=== PATIENT | female | born 1965 | race Caucasian/White ===

== ENCOUNTER 2019-11-23 12:15 | Emergency (ER) | payer MEDICARE ==
--- NOTE | 2019-11-23 13:20 | RADIOLOGY REPORT (SQ) ---
EXAM DESCRIPTION: RIBS LEFT W/PA CHEST IMAGES COMPLETED DATE/TIME: 11/23/2019 1:03 pm REASON FOR STUDY: injury COMPARISON: None. TECHNIQUE: Frontal view of the chest and additional views of the left ribs acquired. NUMBER OF VIEWS: Four view. LIMITATIONS: None. FINDINGS: FRONTAL CXR: Bilateral interstitial airspace disease. No pneumothorax or effusion. RIBS: No displaced rib fractures. No lytic or blastic bony lesions. OTHER: No other significant finding. IMPRESSION: Bilateral interstitial airspace disease. No displaced rib fractures. COMMENT: None. SITE OF TRAUMA/COMPLAINT MARKED/STAMP COMPLETED: NO. TECHNICAL DOCUMENTATION: JOB ID: [id number] 2010 [employer]- All Rights Reserved Reading location - IP/workstation name: [email or web address]
--- NOTE | 2019-11-23 13:35 | ER Document Report ---
HPI - HPI Patient complains to provider of: rib pain Time Seen by Provider: 11/23/19 12:24 Pain Level: 5 Context: 53-year-old female past medical history significant for hypertension, fibromyalgia, depression presents to the emergency room complaining of posterior left rib pain. Patient states she fell while coming down her porch steps on Saturday night falling backwards hitting her left ribs on the step. Denies any head trauma or head injury. States she is been taking ibuprofen without relief. States she has a prescription for oxycodone but she did not take it because she does not like to take pain medication unless she is having severe pain. She states she is getting scheduled to have back surgery and her provider gave her prescription for oxycodone for severe pain. She rates her pain at 5 out of 5 but is refusing any pain medication. She denies any shortness of breath, no difficulty breathing. Associated Symptoms: None Exacerbated by: Movement Relieved by: Denies Similar symptoms previously: No Recently seen / treated by doctor: No - ROS Systems Reviewed and Negative: Yes All other systems reviewed and negative - CONSTITUTIONAL Constitutional: DENIES: Fever, Chills - EENT EENT: DENIES: Sore Throat, Ear Pain, Eye problems - NEURO Neurology: DENIES: Headache, Weakness, Vision blurred, Dizzinesss / Vertigo - CARDIOVASCULAR Cardiovascular: DENIES: Chest pain - RESPIRATORY Respiratory: DENIES: Trouble Breathing, Coughing - GASTROINTESTINAL Gastrointestinal: DENIES: Abdominal Pain, Black / Bloody Stools - URINARY Urinary: DENIES: Dysuria, Urgency, Frequency - REPRODUCTIVE Reproductive: DENIES: : - MUSCULOSKELETAL Musculoskeletal: REPORTS: Back Pain - Left posterior rib pain. DENIES: Extr emity pain Past Medical History - General Information source: Patient - Social History Smoking Status: Never Smoker Chew tobacco use (# tins/day): No Frequency of alcohol use: None Drug Abuse: None Family History: Reviewed & Not Pertinent Patient has homicidal ideation: No - Past Medical History Cardiac Medical History: Reports: Hx Hypertension Psychiatric Medical History: Reports: Hx Depression Vertical Provider Document - CONSTITUTIONAL Agree With Documented VS: Yes Exam Limitations: No Limitations General Appearance: Moderate Distress - INFECTION CONTROL TRAVEL OUTSIDE OF THE [place] IN LAST 30 DAYS: No - HEENT HEENT: Atraumatic, Normocephalic - NECK Neck: Normal Inspection, Supple, Thyroid Normal - RESPIRATORY Respiratory: Breath Sounds Normal, No Respiratory Distress Notes: Tenderness on palpation to the posterior lower left ribs. There is no obvious deformity noted. - CARDIOVASCULAR Cardiovascular: Regular Rate, Regular Rhythm, No Murmur - BACK Back: Abnormal Inspection - Tenderness on palpation to the lower left posterior ribs. No obvious deformity noted.. negative: CVA Tenderness-Right, CVA Tenderness-Left - MUSCULOSKELETAL/EXTREMETIES Musculoskeletal/Extremeties: FROM, Non-Tender - NEURO Level of Consciousness: Awake, Alert, Appropriate Motor/Sensory: No Motor Deficit, No Sensory Deficit - DERM Integumentary: Warm, Dry, No Rash Course - Re-evaluation Re-evalutation: 11/23/19 12:30 MDM: Patient to her right posterior ribs 2 days ago. Taking ibuprofen without relief. Refusing any pain medication in the emergency room. Positive tenderness on palpation to the posterior left ribs. Will get x-rays and reevaluate. 11/23/19 13:35 Reviewed negative x-ray results with patient patient continued to refuse any pain medication so there is no change in her pain. States she does want to make sure that she did not have any broken ribs or punctured lung. She has oxycodone at home to take as needed for pain. Patient with elevated blood pressure. States she did take her hydrochlorothiazide this morning but feels that her blood pressure is elevated secondary to her pain. Continues to refuse any pain medication in the emergency room. She was counseled to use lidocaine patches or Biofreeze if she does not want to take narcotics to reduce her pain. She was counseled on the importance of getting her blood pressure under better control. Outpatient follow-up with primary care physician if not improving in 2 to 3 days. Patient was given strict return to the emergency room guidelines. Return for any new or worsening symptoms. All questions were answered. Patient verbalized understanding and agrees with plan of care. 11/23/19 13:42 - Diagnostic Test Radiology reviewed: Reports reviewed Discharge - Discharge Clinical Impression: Contusion of rib on left side Qualifiers: Encounter type: initial encounter Qualified Code(s): S20.212A - Contusion of left front wall of thorax, initial encounter Hypertension Qualifiers: Hypertension type: unspecified Qualified Code(s): I10 - Essential (primary) hypertension Condition: Stable Disposition: HOME, SELF-CARE Instructions: Rib Contusion ([facility]) Additional Instructions: Continue with Tylenol and or Motrin as needed for pain. Take your oxycodone as needed for pain. Can also use [id number] lidocaine patches or Biofreeze to help with the pain. Your blood pressure is elevated it is important that you take some type of pain medication to alleviate your pain to get your blood pressure under better control. Follow-up with your primary care physician if not improving in 2 to 3 days. Return to the emergency room for any new or worsening symptoms.
[2019-11-23 13:42] VITALS: BP 160/100
== END 2019-11-23 13:42 | disposition home or self-care (01) ==
LOC: ER 12:15
DX: S20.212A Contusion of left front wall of thorax, initial encounter (principal); R07.81 Pleurodynia; W10.8XXA Fall (on) (from) other stairs and steps, initial encounter; I10 Essential (primary) hypertension; Z79.899 Other long term (current) drug therapy
CPT/HCPCS: 99283

== ENCOUNTER 2019-11-23 22:14 | Emergency (ER) | payer MEDICARE ==
[2019-11-23] MEDS ORDERED: ONDANSETRON HCL INJ/PF 4 MG/2 ML SDV IV ONE ×2 (22:32→23:41)
[2019-11-23] MEDS ORDERED: HYDROMORPHONE HCL INJ/PF 2 MG/ML AMPULE IV ONE ×2 (22:32→23:41)
--- NOTE | 2019-11-23 22:33 | ER Document Report ---
Entered by MARVA HERNANDEZ SCRIBE 11/23/192230 Acting as scribe for:LINETTE TATUM DO ED General - General Chief Complaint: Back Pain Stated Complaint: BACK PAIN Primary Care Provider: KIRIT GALLOWAY DO [Primary Care Provider] - Follow up as needed Information source: Patient Notes: This 53 year old female patient presents to the emergency department today with arrival via EMS for left back pain. Patient states she tripped on a dog leash and landed on her left upper back, falling down x4 stairs while going outside x2 days ago. Patient denies hitting her head, LOC, or other injury. Patient states she is nauseous and called EMS tonight because of the pain increasing. Patient reports x2 surgeries on her back, a MRI scheduled in x2 days, and oxycodone prescribed for her chronic back pain. Patient states she took x2 oxycodone, a muscle relaxer, and a anti-inflammatory prior to EMS arrival. Patient states she did not visit the ED the day she fell but was seen here earlier today. TRAVEL OUTSIDE OF THE [place] IN LAST 30 DAYS: No - Related Data Allergies/Adverse Reactions: No Known Allergies Allergy (Unverified 11/23/19 12:21) Past Medical History - General Information source: Patient - Social History Smoking Status: Never Smoker Cigarette use (# per day): No Lives with: Family Family History: Reviewed & Not Pertinent - Past Medical History Cardiac Medical History: Reports: Hx Hypertension Psychiatric Medical History: Reports: Hx Depression Past Surgical History: Reports: Hx Orthopedic Surgery Review of Systems - Review of Systems Constitutional: No symptoms reported EENT: No symptoms reported Cardiovascular: No symptoms reported Respiratory: No symptoms reported Gastrointestinal: See HPI, Nausea Genitourinary: No symptoms reported Female Genitourinary: No symptoms reported Musculoskeletal: See HPI, Back pain - L Skin: No symptoms reported Hematologic/Lymphatic: No symptoms reported Neurological/Psychological: See HPI. denies: Lost consciousness -: Yes All other systems reviewed and negative Physical Exam - Vital signs Vitals: Temp 98.2 F 11/23/19 22:15 - General General appearance: Appears well, Alert - HEENT Head: Normocephalic, Atraumatic Eyes: Normal Pupils: PERRL - Respiratory Respiratory status: No respiratory distress Chest status: Nontender Breath sounds: Normal Chest palpation: Normal - Cardiovascular Rhythm: Regular Heart sounds: Normal auscultation Murmur: No - Abdominal Inspection: Normal Distension: No distension Bowel sounds: Normal Tenderness: Nontender - Back Notes: Tenderness with palpation to the left posterior mid scapular region. No step- off. Tenderness with palpation to the left paraspinal muscle and lumbar region. - Extremities General upper extremity: Normal inspection. No: Edema General lower extremity: Normal inspection. No: Edema - Neurological Neuro grossly intact: Yes Cognition: Normal Orientation: AAOx4 Tre Coma Scale Eye Opening: Spontaneous Tre Coma Scale Verbal: Oriented [place] Coma Scale Motor: Obeys Commands Tre Coma Scale Total: 15 Speech: Normal - Psychological Associated symptoms: Normal affect, Normal mood - Skin Skin Temperature: Warm Skin Moisture: Dry Skin Color: Normal Course - Vital Signs Vital signs: Temp Pulse Resp BP Pulse Ox 98.2 F 162/111 H 96 11/23/19 22:15 11/23/19 23:55 11/24/19 00:09 - Laboratory Result Diagrams: 11/23/19 22:27 11/23/19 22:27 Laboratory results interpreted by me: 11/23/19 22:27 Glucose 142 H AST 49 H Discharge - Discharge Clinical Impression: Hypertension Qualifiers: Hypertension type: unspecified Qualified Code(s): I10 - Essential (primary) hypertension Ribs, multiple fractures Qualifiers: Encounter type: initial encounter Fracture type: closed Laterality: left Qualified Code(s): S22.42XA - Multiple fractures of ribs, left side, initial encounter for closed fracture Thoracic aortic aneurysm Qualifiers: Presence of rupture: without rupture Qualified Code(s): I71.2 - Thoracic aortic aneurysm, without rupture Condition: Stable Disposition: HOME, SELF-CARE Instructions: Oral Narcotic Medication ([facility]), Ice Packs ([facility]), Rib Injuries and Fractures ([facility]), High Blood Pressure ([facility]) Additional Instructions: Rest, fluids, medicines as directed. Please return here for chest pain, s hortness of breath or other problems or concerns. Pain medicine has been sent to [facility]. Referrals: KIRIT GALLOWAY DO [Primary Care Provider] - 11/25/19 I personally performed the services described in the documentation, reviewed and edited the documentation which was dictated to the scribe in my presence, and it accurately records my words and actions.
[2019-11-23 22:47] LABS: ABSOLUTE BASOPHILS # (AUTO) 0.1 10^3/uL (0.0-0.2); ABSOLUTE EOSINOPHILS # (AUTO) 0.3 10^3/uL (0.0-0.6); ABSOLUTE LYMPHOCYTES (AUTO) 2.9 10^3/uL (0.5-4.7); ABSOLUTE MONOCYTES (AUTO) 0.5 10^3/uL (0.1-1.4); ABSOLUTE NEUT (AUTO) 4.7 10^3/uL (1.7-8.2); BASOPHILS % (AUTO) 0.9 % (0-2); HEMATOCRIT 40.3 % (36.0-47.0); HEMOGLOBIN 13.7 g/dL (12.0-15.5); MEAN CORPUSCULAR VOLUME 91 fl (80-97); MONOCYTES % (AUTO) 5.6 % (3-13); PLATELET COUNT 254 10^3/uL (150-450); RED BLOOD COUNT 4.42 10^6/uL (3.72-5.28); RED CELL DISTRIBUTION WIDTH 13.4 % (11.5-14.0); SEGMENTED NEUTROPHILS % (AUTO) 55.5 % (42-78); TOTAL CELLS COUNTED % (AUTO) 100 %; WHITE BLOOD COUNT 8.5 10^3/uL (4.0-10.5)
[2019-11-23 22:53] LABS: ALBUMIN 4.7 g/dL (3.5-5.0); ALKALINE PHOSPHATASE 105 U/L (38-126); ANION GAP 8 (5-19); ASPARTATE AMINO TRANSFERASE 49 U/L (14-36); BILIRUBIN,DIRECT 0.3 mg/dL (0.0-0.4); BILIRUBIN,TOTAL 0.4 mg/dL (0.2-1.3); BLOOD UREA NITROGEN 12 mg/dL (7-20); CALCIUM 9.8 mg/dL (8.4-10.2); CARBON DIOXIDE 27 mmol/L (22-30); CHLORIDE 102 mmol/L (98-107); GLUCOSE 142 mg/dL (75-110); TOTAL PROTEIN 7.5 g/dL (6.3-8.2)
--- NOTE | 2019-11-24 00:47 | RADIOLOGY REPORT (SQ) ---
COMPLETED DATE/TME: 11/23/2019 23:40 EXAM: CTA chest with contrast. CTA abdomen and pelvis with contrast. INDICATION: Thoracic aneurysm, pain, fall TECHNIQUE: Contiguous axial CT images of the chest. Contiguous axial CT images of the abdomen and pelvis. Intravenous contrast: Present. Oral contrast: Absent. MPR and MIP reconstructions were performed. DLP 990 mGy-cm. This exam was performed according to our departmental dose-optimization program, which includes automated exposure control, adjustment of the mA and/or kV according to patient size and/or use of iterative reconstruction technique. COMPARISON: None. FINDINGS: --Chest-- Thoracic aorta: The ascending aorta measures up to 4.2 cm in diameter. No evidence of a dissection. Heart: Unremarkable. Pulmonary arteries: No evidence of a pulmonary embolism. Mediastinum: No pathologic sized middle mediastinal lymphadenopathy. Tracheobronchial tree: Unremarkable. Lungs: Lobar consolidation: Negative. Pleural effusion: Negative. Pneumothorax: Negative. Other: Negative. Bones: Nondisplaced fracture of the left 10th rib. Nondisplaced fracture involving the left 11th rib near the costovertebral junction and displaced oblique fracture of the left 11th rib laterally. --Abdomen-- Solid abdominal viscera: Liver: Unremarkable. Gallbladder: Unremarkable. Pancreas: Unremarkable. Spleen: Unremarkable. Adrenal glands: Unremarkable. Right kidney: No hydronephrosis. Left kidney: No hydronephrosis. Urinary bladder: Unremarkable. Abdominal aorta: No evidence of an aneurysm or dissection. The celiac axis, SMA, renal arteries and iliac branches are widely patent. Peritoneal: Free fluid: None. Free air: None. Other: No pathologic sized lymph nodes in the upper abdomen. Bowel: Stomach: Unremarkable. Small bowel: Unremarkable. Appendix: Not uniquely identified, however there are no pericecal inflammatory changes. Colon: Diverticulosis without evidence of diverticulitis. Rectum: Unremarkable. Uterus: Hysterectomy. Bones: Changes of posterior fusion at L4-S1. No acute fracture. Old healed fracture of the left inferior pubic ramus. IMPRESSION: Ascending aortic aneurysm measuring up to 4.2 cm in diameter. No evidence of an aortic dissection. Left 10th and 11th rib fractures. No underlying pulmonary contusion or pneumothorax. No acute findings within the abdomen or pelvis.
[2019-11-24] MEDS ORDERED: PROMETHAZINE HCL INJ 25 MG/1 ML VIAL IV ONE (01:36)
[2019-11-24 02:18] VITALS: BP 142/106
== END 2019-11-24 02:22 | disposition home or self-care (01) ==
LOC: ER 22:14
DX: S22.42XA Multiple fractures of ribs, left side, initial encounter for closed fracture (principal); W10.9XXA Fall (on) (from) unspecified stairs and steps, initial encounter; I71.2 Thoracic aortic aneurysm, without rupture; I10 Essential (primary) hypertension; R11.0 Nausea; M54.9 Dorsalgia, unspecified; G89.29 Other chronic pain; Z79.891 Long term (current) use of opiate analgesic
CPT/HCPCS: 96376; 99283; 99285; 96374; 96375; 36415; 85025; 80053; 71101; 71275; 74174; J1170; J2550; J2405

== ENCOUNTER 2019-11-28 14:15 | Observation (INO) | payer MEDICARE ==
[2019-11-28] MEDS ORDERED: MORPHINE SULFATE 10 MG/ML INJ IV ONE ×2 (14:50→20:32)
[2019-11-28] MEDS ORDERED: ONDANSETRON HCL INJ/PF 4 MG/2 ML SDV IV ONE (14:50)
--- NOTE | 2019-11-28 14:52 | ER Document Report ---
ED Medical Screen (RME) - General Chief Complaint: Back Pain Stated Complaint: BACK PAIN Time Seen by Provider: 11/28/19 14:44 Primary Care Provider: KIRIT GALLOWAY DO [Primary Care Provider] - Follow up as needed TRAVEL OUTSIDE OF THE [place] IN LAST 30 DAYS: No - HPI Notes: 11/28/19 14:51 53-year-old female to the emergency department via EMS with complaints of severe left-sided rib pain that began about 5 days ago. I days ago she fell down her stairs at night. She thinks she fell down about 3 stairs and it struck her directly on the back of her ribs. She was seen here in the emergency department and had a CT scan. That illustrated that she had 1/10 and 11th rib fracture. She was given hydrocodone for pain control but she states she has had no pain control whatsoever. She states she feels like something is jabbing her and that things are moving. She states that she has had broken ribs before but it just does not feel right. Admits to shortness of breath. Is very painful when she takes a big deep breath. Denies any other symptoms. She is in significant pain in triage. I performed a brief medical screening exam on the patient determined that the patient needs further evaluation and management by main side provider. I have placed initial orders to help expedite care. - Related Data Allergies/Adverse Reactions: No Known Allergies Allergy (Verified 11/28/19 14:44) Past Medical History - Past Medical History Cardiac Medical History: Reports: Hx Hypertension Psychiatric Medical History: Reports: Hx Depression Past Surgical History: Reports: Hx Orthopedic Surgery Physical Exam - Vital signs Vitals: Temp Pulse Resp BP Pulse Ox 97.5 F 87 20 133/88 H 95 11/28/19 14:21 11/28/19 14:21 11/28/19 14:21 11/28/19 14:21 11/28/19 14:21 Course - Vital Signs Vital signs: Temp Pulse Resp BP Pulse Ox 97.5 F 87 20 133/88 H 95 11/28/19 14:21 11/28/19 14:21 11/28/19 14:21 11/28/19 14:21 11/28/19 14:21 Doctor's Discharge - Discharge Referrals: KIRIT GALLOWAY DO [Primary Care Provider] - Follow up as needed
[2019-11-28 15:17] LABS: ABSOLUTE BASOPHILS # (AUTO) 0.1 10^3/uL (0.0-0.2); ABSOLUTE EOSINOPHILS # (AUTO) 0.2 10^3/uL (0.0-0.6); ABSOLUTE LYMPHOCYTES (AUTO) 1.2 10^3/uL (0.5-4.7); ABSOLUTE MONOCYTES (AUTO) 0.5 10^3/uL (0.1-1.4); ABSOLUTE NEUT (AUTO) 5.6 10^3/uL (1.7-8.2); EOSINOPHILS % (AUTO) 2.4 % (0-6); HEMATOCRIT 39.3 % (36.0-47.0); HEMOGLOBIN 13.5 g/dL (12.0-15.5); LYMPHOCYTES % (AUTO) 15.6 % (13-45); MEAN CORPUSCULAR HEMOGLOBIN 31.2 pg (27.0-33.4); MEAN CORPUSCULAR HGB CONC 34.4 g/dL (32.0-36.0); MEAN CORPUSCULAR VOLUME 91 fl (80-97); MONOCYTES % (AUTO) 6.8 % (3-13); PLATELET COUNT 239 10^3/uL (150-450); RED BLOOD COUNT 4.33 10^6/uL (3.72-5.28); RED CELL DISTRIBUTION WIDTH 13.5 % (11.5-14.0); SEGMENTED NEUTROPHILS % (AUTO) 74.2 % (42-78); TOTAL CELLS COUNTED % (AUTO) 100 %; WHITE BLOOD COUNT 7.5 10^3/uL (4.0-10.5)
[2019-11-28 15:35] LABS: ALBUMIN 4.6 g/dL (3.5-5.0); ALKALINE PHOSPHATASE 92 U/L (38-126); ANION GAP 11 (5-19); ASPARTATE AMINO TRANSFERASE 48 U/L (14-36); BILIRUBIN,DIRECT 0.3 mg/dL (0.0-0.4); BILIRUBIN,TOTAL 0.5 mg/dL (0.2-1.3); BLOOD UREA NITROGEN 12 mg/dL (7-20); CALCIUM 9.6 mg/dL (8.4-10.2); CARBON DIOXIDE 28 mmol/L (22-30); CHLORIDE 101 mmol/L (98-107); GLUCOSE 148 mg/dL (75-110); POTASSIUM 3.6 mmol/L (3.6-5.0); TOTAL PROTEIN 7.5 g/dL (6.3-8.2)
[2019-11-28] MEDS ORDERED: HYDROMORPHONE HCL INJ/PF 2 MG/ML AMPULE IV ONE (16:07)
--- NOTE | 2019-11-28 16:17 | ER Document Report ---
ED Neck/Back Problem - General Chief Complaint: Back Pain Stated Complaint: BACK PAIN Time Seen by Provider: 11/28/19 14:44 Primary Care Provider: KIRIT GALLOWAY DO [Primary Care Provider] - Follow up as needed Mode of Arrival: Ambulatory Information source: Patient Notes: Patient reports falling down 4 steps last week fracturing her left 10th and 11th posterior ribs. Patient states that she has been at home and has been taking pain medication without improvement of her symptoms. Patient reports that the pain worsened today. Patient reports nausea and some shortness of breath. Patient denies any fever or urinary symptoms. Patient denies any new injury. P atient reports pain worsens with any type of movement and she has to hold herself upright to minimize discomfort. TRAVEL OUTSIDE OF THE [place] IN LAST 30 DAYS: No - HPI Patient complains to provider of: Pain, Injury Onset: Last week Where: Home Onset: Sudden Timing: Worse Quality of pain: Sharp Pain Level: 5 Associated symptoms: Lower back pain. denies: Chest pain, Abdominal pain, Chills, Fever, Unable to urinate Exacerbated by: Movement of trunk Relieved by: Nothing Similar symptoms previously: No Recently seen / treated by doctor: Yes - Related Data Allergies/Adverse Reactions: No Known Allergies Allergy (Verified 11/28/19 14:44) Past Medical History - General Information source: Patient - Social History Smoking Status: Never Smoker Frequency of alcohol use: None Drug Abuse: None Occupation: None Lives with: Spouse/Significant other Family History: Reviewed & Not Pertinent - Past Medical History Cardiac Medical History: Reports: Hx Hypertension, Other - Thoracic aortic aneurysm Musculoskeletal Medical History: Reports Hx Arthritis - Chronic neck and back pain Psychiatric Medical History: Reports: Hx Depression Past Surgical History: Reports: Hx Orthopedic Surgery Review of Systems - Review of Systems Constitutional: No symptoms reported. denies: Fever EENT: No symptoms reported Cardiovascular: No symptoms reported. denies: Chest pain Respiratory: Short of breath. denies: Cough Gastrointestinal: Nausea. denies: Abdominal pain, Diarrhea, Vomiting Genitourinary: No symptoms reported. denies: Dysuria Female Genitourinary: No symptoms reported Musculoskeletal: Back pain Skin: Change in color - Bruising over injured area Hematologic/Lymphatic: No symptoms reported Neurological/Psychological: No symptoms reported Physical Exam - Vital signs Vitals: Temp Pulse Resp BP Pulse Ox 97.5 F 87 20 133/88 H 95 09/26/20 14:21 11/28/19 14:21 11/28/19 14:21 11/28/19 14:21 11/28/19 14:21 - General General appearance: Alert, Anxious In distress: Moderate - HEENT Head: Normocephalic, Atraumatic Eyes: Normal Conjunctiva: Normal Nasal: Normal Mouth/Lips: Normal Mucous membranes: Normal Neck: Normal, Supple - Respiratory Respiratory status: No respiratory distress Chest status: Pain on movement, Pain with deep breathing Breath sounds: Normal Chest palpation: Tender - Tenderness to left lower posterior thoracic rib area - Cardiovascular Rhythm: Regular Heart sounds: S1 appreciated, S2 appreciated - Abdominal Inspection: Normal Distension: No distension Tenderness: Nontender - Back Back: Tender - Left paraspinal thoracolumbar tenderness. No: Deformity/step- off, Vertebra tenderness - Extremities General upper extremity: Normal inspection, Normal strength General lower extremity: Normal inspection, Normal strength - Neurological Neuro grossly intact: Yes Cognition: Normal [place] Coma Scale Eye Opening: Spontaneous [place] Coma Scale Verbal: Oriented Tre Coma Scale Motor: Obeys Commands Tre Coma Scale Total: 15 - Psychological Associated symptoms: Anxious - Skin Skin Temperature: Warm Skin Moisture: Dry Skin Color: Ecchymosis - Faint ecchymosis to the left flank area Course - Re-evaluation Re-evalutation: 11/28/19 19:03 Patient complains of continued pain to the back area with any type of movement. Patient feels anxious to be discharged home with this amount of pain that was not responsive to oral narcotic medication. Offered patient consultation with hospitalist for consideration of admission for pain control at this time. Aw aiting hospitalist change of shift for consultation at this time. 11/28/19 19:49 Attempted consultation with hospitalist, no answer, will try again. 11/28/19 20:[address] Cadena who does agree to come and evaluate patient. 11/28/19 20:41 Hospitalist agrees to admit patient as observation but given difficulty in managing her pain symptoms as well as concerns about risk for developing i nfection given multiple rib fractures. - Vital Signs Vital signs: Temp Pulse Resp BP Pulse Ox 97.5 F 87 20 133/88 H 95 11/28/19 14:21 11/28/19 14:21 11/28/19 14:21 11/28/19 14:21 11/28/19 14:21 - Laboratory Result Diagrams: 11/28/19 15:04 11/28/19 15:04 Laboratory results interpreted by me: 11/28/19 11/28/19 15:04 17:40 Glucose 148 H AST 48 H ALT 36 H Urine Ketones TRACE H Urine Urobilinogen 2.0 H 11/28/19 20:42 Labs- All tests 24 hr 11/28/19 11/28/19 11/28/19 15:04 15:04 17:40 WBC 7.5 RBC 4.33 Hgb 13.5 Hct 39.3 MCV 91 MCH 31.2 MCHC 34.4 RDW 13.5 Plt Count 239 Lymph % (Auto) 15.6 [place] % (Auto) 6.8 Eos % (Auto) 2.4 Baso % (Auto) 1.0 Absolute Neuts (auto) 5.6 Absolute Lymphs (auto) 1.2 Absolute Monos (auto) 0.5 Absolute Eos (auto) 0.2 Absolute Basos (auto) 0.1 Seg Neutrophils % 74.2 Sodium 139.8 Potassium 3.6 Chloride 101 Carbon Dioxide 28 Anion Gap 11 BUN 12 Creatinine 0.82 Est GFR ( Amer) > 60 Est GFR (MDRD) Non-Af > 60 Glucose 148 H Calcium 9.6 Total Bilirubin 0.5 Direct Bilirubin 0.3 Neonat Total Bilirubin Not Reportable Neonat Direct Bilirubin Not Reportable Neonat Indirect Bili Not Reportable AST 48 H ALT 36 H Alkaline Phosphatase 92 Total Protein 7.5 Albumin 4.6 Urine Color [facility] Urine Appearance SLIGHTLY-CLOUDY Urine pH 6.0 Ur Specific [place] 1.046 Urine Protein NEGATIVE Urine Glucose (UA) NEGATIVE Urine Ketones TRACE H Urine Blood NEGATIVE Urine Nitrite NEGATIVE Urine Bilirubin NEGATIVE Urine Urobilinogen 2.0 H Ur Leukocyte Esterase NEGATIVE Urine WBC (Auto) 2 Urine RBC (Auto) 2 Squamous Epi Cells Auto 15 Urine Mucus (Auto) FEW Urine Ascorbic Acid NEGATIVE - Diagnostic Test Radiology reviewed: Image reviewed, Reports reviewed Discharge - Discharge Clinical Impression: Ribs, multiple fractures Qualifiers: Encounter type: initial encounter Fracture type: closed Laterality: left Qualified Code(s): S22.42XA - Multiple fractures of ribs, left side, initial enc ounter for closed fracture Back pain Qualifiers: Back pain location: thoracic back pain Chronicity: acute Back pain laterality: left Qualified Code(s): M54.6 - Pain in thoracic spine Condition: Fair Disposition: ADMITTED OBSERVATION Admitting Provider: Meghna (Hospitalist) Unit Admitted: Medical Floor Referrals: KIRIT GALLOWAY DO [Primary Care Provider] - Follow up as needed
[2019-11-28] MEDS ORDERED: NORMAL SALINE 1000 ML 1,000 ML IV ONE (17:03)
--- NOTE | 2019-11-28 17:23 | RADIOLOGY REPORT (SQ) ---
EXAM DESCRIPTION: CTA CHEST; CT ABD/PELVIS WITH IV ONLY IMAGES COMPLETED DATE/TIME: 11/28/2019 5:02 pm REASON FOR STUDY: fall, rib fx, worse pain, hx thoracic aneurysm; L posterior back pain,hx rib fract ure COMPARISON: 11/24/2019 TECHNIQUE: CT scan of the aorta extending to the iliac bifurcation performed with intravenous contra st using helical scanning technique with dynamic intravenous contrast injection. Images reviewed with lung, soft tissue, and bone windows. Reconstructed coronal and sagittal MPR images reviewed. All maria esther ges stored on PACS. Advanced 3D imaging as volume rendering, MIPS, SSD performed? yes All CT scanners at this facility use dose modulation, iterative reconstruction, and/or weight based d osing when appropriate to reduce radiation dose to as low as reasonably achievable (ALARA). [facility]: Dose Right [facility]: CareDose [facility]: Dose Right [facility]: Teradose 4D [facility]: Squabbler CONTRAST TYPE AND DOSE: 100 mL Isovue 370- low osmolar. RENAL FUNCTION: GFR > 60. LIMITATIONS: None. FINDINGS: AORTA AND VESSELS: Stable appearance of the ascending aorta measuring 4.1 cm in greatest d imension. No dissection. Renal arteries, SMA, celiac without stenosis. LUNGS: Small amount of left basilar subsegmental atelectasis -trace effusion, similar to the prior st udy. LIVER: Normal size. No masses or dilated ducts. SPLEEN: Normal size. No focal lesions. PANCREAS: No masses. No significant calcifications. No adjacent inflammation or peripancreatic fluid collections. Pancreatic duct not dilated. GALLBLADDER: No identified stones by CT criteria. No inflammatory changes to suggest cholecystitis. ADRENAL GLANDS: No significant masses or asymmetry. RIGHT KIDNEY AND URETER: No mass, calculi or urinary tract obstruction. LEFT KIDNEY AND URETER: No mass, calculi or urinary tract obstruction. RETROPERITONEUM: No retroperitoneal adenopathy, hemorrhage or masses. BOWEL AND PERITONEAL CAVITY: No masses or inflammatory changes. No free fluid or peritoneal masses. APPENDIX: Normal. ABDOMINAL WALL: No masses. No hernias. BONY STRUCTURES: Similar posterior left 8th through 11th rib fractures. Similar appearance of the po sterior lumbar fusion hardware. 3-D IMAGING: Confirms the above findings. PELVIS: Prior hysterectomy. Similar 2.2 cm left ovarian cyst. IMPRESSION: No acute findings. Stable appearance of the ascending aorta measuring 4.1 cm in greatest dimension. No dissection. Simil ar posterior left 8th through 11th rib fractures. Small amount of left basilar subsegmental atelectas is -trace effusion, similar to the prior study. TECHNICAL DOCUMENTATION: JOB ID: [id number] [place]-72 Quality ID # [id number]: Final reports with documentation of one or more dose reduction techniques (e.g., Au tomated exposure control, adjustment of the mA and/or kV according to patient size, use of iterative reconstruction technique) 2010 [employer]- All Rights Reserved Reading location - IP/workstation name: [email or web address]
--- NOTE | 2019-11-28 17:23 | RADIOLOGY REPORT (SQ) ---
EXAM DESCRIPTION: CTA CHEST; CT ABD/PELVIS WITH IV ONLY IMAGES COMPLETED DATE/TIME: 11/28/2019 5:02 pm REASON FOR STUDY: fall, rib fx, worse pain, hx thoracic aneurysm; L posterior back pain,hx rib fract ure COMPARISON: 11/24/2019 TECHNIQUE: CT scan of the aorta extending to the iliac bifurcation performed with intravenous contra st using helical scanning technique with dynamic intravenous contrast injection. Images reviewed with lung, soft tissue, and bone windows. Reconstructed coronal and sagittal MPR images reviewed. All maria esther ges stored on PACS. Advanced 3D imaging as volume rendering, MIPS, SSD performed? yes All CT scanners at this facility use dose modulation, iterative reconstruction, and/or weight based d osing when appropriate to reduce radiation dose to as low as reasonably achievable (ALARA). [facility]: Dose Right [facility]: CareDose [facility]: Dose Right [facility]: Teradose 4D [facility]: [employer] CONTRAST TYPE AND DOSE: 100 mL Isovue 370- low osmolar. RENAL FUNCTION: GFR > 60. LIMITATIONS: None. FINDINGS: AORTA AND VESSELS: Stable appearance of the ascending aorta measuring 4.1 cm in greatest d imension. No dissection. Renal arteries, SMA, celiac without stenosis. LUNGS: Small amount of left basilar subsegmental atelectasis -trace effusion, similar to the prior st udy. LIVER: Normal size. No masses or dilated ducts. SPLEEN: Normal size. No focal lesions. PANCREAS: No masses. No significant calcifications. No adjacent inflammation or peripancreatic fluid collections. Pancreatic duct not dilated. GALLBLADDER: No identified stones by CT criteria. No inflammatory changes to suggest cholecystitis. ADRENAL GLANDS: No significant masses or asymmetry. RIGHT KIDNEY AND URETER: No mass, calculi or urinary tract obstruction. LEFT KIDNEY AND URETER: No mass, calculi or urinary tract obstruction. RETROPERITONEUM: No retroperitoneal adenopathy, hemorrhage or masses. BOWEL AND PERITONEAL CAVITY: No masses or inflammatory changes. No free fluid or peritoneal masses. APPENDIX: Normal. ABDOMINAL WALL: No masses. No hernias. BONY STRUCTURES: Similar posterior left 8th through 11th rib fractures. Similar appearance of the po sterior lumbar fusion hardware. 3-D IMAGING: Confirms the above findings. PELVIS: Prior hysterectomy. Similar 2.2 cm left ovarian cyst. IMPRESSION: No acute findings. Stable appearance of the ascending aorta measuring 4.1 cm in greatest dimension. No dissection. Simil ar posterior left 8th through 11th rib fractures. Small amount of left basilar subsegmental atelectas is -trace effusion, similar to the prior study. TECHNICAL DOCUMENTATION: JOB ID: [id number] [place]-72 Quality ID # [id number]: Final reports with documentation of one or more dose reduction techniques (e.g., Au tomated exposure control, adjustment of the mA and/or kV according to patient size, use of iterative reconstruction technique) 2010 [employer]- All Rights Reserved Reading location - IP/workstation name: [employer]
[2019-11-28] MEDS ORDERED: LIDOCAINE 5% (700 MG) TRANSDERMAL ADH..PATCH TP ONE ×2 (17:46→20:46)
[2019-11-28 17:59] LABS: APPEARANCE,URINE SLIGHTLY-CLOUDY; BILIRUBIN,URINE NEGATIVE (NEGATIVE); COLOR,URINE AMBER; GLUCOSE, URINE NEGATIVE (NEGATIVE); KETONES,URINE TRACE mg/dL (NEGATIVE); LEUKOCYTE ESTERASE,URINE NEGATIVE (NEGATIVE); NITRITE,URINE NEGATIVE (NEGATIVE); PROTEIN,URINE NEGATIVE (NEGATIVE); URINE SPECIFIC GRAVITY 1.046
[2019-11-28] MEDS ORDERED: TIZANIDINE HCL 4 MG TABLET PO ONE (20:33)
[2019-11-28] MEDS ORDERED: KETOROLAC TROMETHAMINE INJ/PF 30 MG/1 ML SDV IV ONE (20:34)
[2019-11-28] MEDS ORDERED: PROMETHAZINE HCL INJ 25 MG/1 ML VIAL IV PRN (20:42)
[2019-11-28] MEDS ORDERED: ACETAMINOPHEN 325 MG TABLET PO PRN (20:42)
[2019-11-28] MEDS ORDERED: ONDANSETRON HCL INJ/PF 4 MG/2 ML SDV IV PRN (20:42)
[2019-11-28] MEDS ORDERED: IPRATROPIUM/ALBUTEROL 0.5-2.5 MG/3 ML AMPUL NEB PRN (20:42)
[2019-11-28] MEDS ORDERED: HYDROMORPHONE HCL INJ/PF 2 MG/ML AMPULE IV PRN ×2 (20:45)
[2019-11-28] MEDS ORDERED: HYDRALAZINE HCL INJ/PF 20 MG/1 ML SDV IV PRN (20:46)
[2019-11-28] MEDS ORDERED: KETOROLAC TROMETHAMINE INJ/PF 30 MG/1 ML SDV IV PRN (20:46)
[2019-11-28] MEDS ORDERED: METOPROLOL TARTRATE PF/INJ 5 MG/5 ML SDV IV PRN (20:46)
[2019-11-28] MEDS ORDERED: NORMAL SALINE 1000 ML 1,000 ML IV PRN (23:25)
--- NOTE | 2019-11-28 23:25 | PDOC H&P ---
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 In ED a CT chest was positive for 8th through 11th rib fractures with a small amount of left basilar subsegmental atelectasis and stable appearing ascending aorta of 4.1 cm in the greatest dimension. Initially patient was sent home on some p.o. opioids however she has presented back to ED 3 times in the last 24-hour complaining of intractable severe left posterior lateral pain. On my encounter patient again bed reclined in 80 degrees and is noted to be in extreme pain, appears very distressed and looks very uncomfortable, and screamin g whenever she feels a spasm in the left posterior lateral chest, stating that any type of movement will trigger her pain. She describes her pain assharp, stabbing, 5/5 in severity scale, constant, w orsened with any type of movement even trying to eat. She is also noted to be very anxious, tachypneic and tachycardic and very hesitant to allow any physical examination stating that any type of movement trigger her extreme pain. Patient is denying any headache, lightheadedness, fever, shortness of breath, chills, nausea, vomiting, diarrhea, constipation or any urinary symptoms. CBC CMP WNL, patient may not warrant admission given her labs and vitals however given her severe pain, anxiety and possibility of going into respiratory failure or developing pneumonia, I believe it is is safer to admit patient for observation managing her pain until she is considered to be safe for discharge h ome. Past Medical History Cardiac Medical History: Reports: Hypertension, Other - Thoracic aortic aneurysm Musculoskeltal Medical History: Reports: Arthritis - Chronic neck and back pain Psychiatric Medical History: Reports: Depression Past Surgical History Past Surgical History: Reports: Orthopedic Surgery Social History Lives with: Spouse/Significant other Smoking Status: Never Smoker Family History Family History: Reviewed & Not Pertinent Parental Family History Reviewed: Yes Children Family History Reviewed: Yes Sibling(s) Family History Reviewed.: Yes Medication/Allergy Home Medications: Hydrocodone/Acetaminophen [[place] 7.5-325 mg Tablet] 1 tab PO Q6 PRN 3 Days #12 tablet 11/24/19 Promethazine HCl [Phenergan 25 mg Tablet] 12.5 mg PO TID #6 tablet 11/24/19 Allergies/Adverse Reactions: No Known Allergies Allergy (Verified 11/28/19 14:44) Review of Systems Review of Systems: as per hpi Physical Exam Vital Signs: Temp Pulse Resp BP Pulse Ox 97.5 F 87 20 131/88 H 97 11/28/19 14:21 11/28/19 14:21 11/28/19 22:01 11/28/19 22:00 11/28/19 22:01 Intake & Output 11/27/19 11/28/19 11/29/19 06:59 06:59 06:59 Weight 65.771 kg General appearance: PRESENT: severe distress Head exam: PRESENT: atraumatic, normocephalic Respiratory exam: PRESENT: accessory muscle use, tachypnea, other - Limited examination as patient is very hesitant to allow physical examination stating it is causing extreme pain when she tries to move or she has been touched. No hematoma, rash wound or any crepitation.. ABSENT: rales, rhonchi, wheezes Cardiovascular exam: PRESENT: RRR, tachycardia. ABSENT: diastolic murmur, rubs, systolic murmur GI/Abdominal exam: PRESENT: normal bowel sounds, soft. ABSENT: distended, guarding, mass, organolmegaly, rebound, tenderness Neurological exam: PRESENT: alert, awake, oriented to person, oriented to place, oriented to time, oriented to situation, CN II-XII grossly intact. ABSENT: motor sensory deficit Psychiatric exam: PRESENT: anxious, other Results Laboratory Results: 11/28/19 15:04 11/28/19 15:04 11/28/19 11/28/19 11/28/19 15:04 15:04 17:40 WBC 7.5 RBC 4.33 Hgb 13.5 Hct 39.3 MCV 91 MCH 31.2 MCHC 34.4 RDW 13.5 Plt Count 239 Seg Neutrophils % 74.2 Sodium 139.8 Potassium 3.6 Chloride 101 Carbon Dioxide 28 Anion Gap 11 BUN 12 Creatinine 0.82 Est GFR ( Amer) > 60 Glucose 148 H Calcium 9.6 Total Bilirubin 0.5 AST 48 H Alkaline Phosphatase 92 Total Protein 7.5 Albumin 4.6 Urine Color [facility] Urine Appearance SLIGHTLY-CLOUDY Urine pH 6.0 Ur Specific [place] 1.046 Urine Protein NEGATIVE Urine Glucose (UA) NEGATIVE Urine Ketones TRACE H Urine Blood NEGATIVE Urine Nitrite NEGATIVE Ur Leukocyte Esterase NEGATIVE Urine WBC (Auto) 2 Urine RBC (Auto) 2 Impressions: Abdomen/Pelvis CT 11/28/19 16:12 IMPRESSION: No acute findings. Stable appearance of the ascending aorta measuring 4.1 cm in greatest dimension. No dissection. Similar posterior left 8th through 11th rib fractures. Small amount of left basilar subsegmental atelectasis -trace effusion, similar to the prior study. Chest/Abdomen CTA 11/28/19 16:18 IMPRESSION: No acute findings. Stable appearance of the ascending aorta measuring 4.1 cm in greatest dimension. No dissection. Similar posterior left 8th through 11th rib fractures. Small amount of left basilar subsegmental atelectasis -trace effusion, similar to the prior study. Assessment and Plan - Diagnosis (1) Ribs, multiple fractures Qualifiers: Encounter type: initial encounter Fracture type: closed Laterality: left Qualified Code(s): S22.42XA - Multiple fractures of ribs, left side, initial encounter for closed fracture Is this a current diagnosis for this admission?: Yes Plan: Intractable left posterior lateral chest pain due to multiple rib fractures. Due to multiple rib fractures of left posterilateral chest caused by mechanical fall. Admit to floor, opioid analgesics guided by her vitals, IV Toradol, p.o. muscle relaxants, topical lidocaine, incentive spirometry. Monitor for respiratory depression, encourage pulmonary toileting, taper down opioids as appropriate. If no resolution of intractable pain consult pain management. (2) Intractable back pain Is this a current diagnosis for this admission?: Yes Plan: Intractable left posterior lateral chest pain due to multiple rib fractures. Due to multiple rib fractures and left posterior lateral chest. Plan as above. (3) Hypertension Qualifiers: Hypertension type: unspecified Qualified Code(s): I10 - Essential (primary) hypertension Is this a current diagnosis for this admission?: Yes Plan: Uncontrolled. Appears euvolemic. Admit to floor, resume home meds, adjust meds as needed. PRN IV hydralazine and metoprolol. Outpatient PCP follow-up. (4) Thoracic aortic aneurysm Qualifiers: Presence of rupture: without rupture Qualified Code(s): I71.2 - Thoracic aortic aneurysm, without rupture Is this a current diagnosis for this admission?: Yes Plan: CT chest positive for aortic aneurysm 4.1 cm in the greatest dimension. No sign of fracture. Patient denies any history of smoking, stating that she has history of hypertension which is controlled. 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 Monitor and optimize BP. Outpatient PCP follow-up. Encouraged tobacco abstinence. - Time Time Spent with patient: 35 or more minutes Medications reviewed and adjusted accordingly: Yes Anticipated Discharge Disposition: Home, Self Care Anticipated Discharge Timeframe: within 36 hours
[2019-11-28] MEDS ORDERED: METHOCARBAMOL 500 MG TABLET ONE (23:42)
[2019-11-29] MEDS: METHOCARBAMOL 500 MG TABLET PO SCH ×2 (00:01→13:08)
[2019-11-29] MEDS ORDERED: OXYCODONE HCL IR 5 MG TABLET PO PRN (07:55)
[2019-11-29] MEDS ORDERED: KETOROLAC TROMETHAMINE INJ/PF 30 MG/1 ML SDV IV SCH (09:00)
[2019-11-29 09:02] VITALS: BP 107/71
[2019-11-29] MEDS ORDERED: TIZANIDINE HCL 4 MG TABLET PO SCH (10:00)
[2019-11-29] MEDS ORDERED: ENOXAPARIN SODIUM INJ 40 MG/0.4 ML DISP.SYRIN SUBCUT SCH (10:00)
[2019-11-29] MEDS ORDERED: ACETAMINOPHEN 325 MG TABLET PO SCH (10:00)
[2019-11-29] MEDS ORDERED: MORPHINE SULFATE 10 MG/ML INJ IV ONE (10:15)
--- NOTE | 2019-11-29 15:12 | PDOC DISCHARGE SUMMARY ---
Impression - Admit/DC Date/PCP Admission Date/Primary Care Provider: 11/28/19 20:52 KIRIT GALLOWAY DO Discharge Date: 11/29/19 - Assessment Summary: YAMINI FLORENTINO is a 53 year old female with no significant past medical history who had a mechanical fall on the stairs when she tripped over the leash of her dog, patient is stating that she fell on the left side falling down about 3-4 steps, patient denies any head trauma, loss of consciousness, syncope, presyncope, palpitation, chest pain, or any history of seizure. In the ED, CT chest was positive for 8th through 11th rib fractures with a small amount of left basilar subsegmental atelectasis and stable appearing ascending aorta of 4.1 cm in the greatest dimension. Initially patient was sent home o p.o. opioids however she has presented back to ED 3 times in the last 24-hour complaining of intractable severe left posterior lateral back pain. She was admitted for observation overnight for pain management. Pain was well controlled on a regimen of scheduled Tylenol, scheduled Naproxen, muscle relaxants PRN and oxycodone PRN. She was discharged home with these medications as well as a prescription for Narcan. She was advised to follow up with her PCP within 1 week. - Additional Information Resuscitation Status: Full Code Discharge Diet: Regular Discharge Activity: Activity As Tolerated Referrals: KIRIT GALLOWAY DO [Primary Care Provider] - Follow up as needed Prescriptions: Acetaminophen [7T Gummy Es] 1,000 mg PO TID #180 tab.chew Naproxen [EC-Naproxen] 375 mg PO BID #30 tablet. Cyclobenzaprine HCl [Flexeril 10 mg Tablet] 10 mg PO TIDP PRN #30 tab PRN Reason: Naloxone HCl [Narcan] 4 mg NS ONCEP PRN #1 spray PRN Reason: overdose Oxycodone HCl [Oxy-Ir 5 mg Tablet] 10 mg PO Q8HP PRN #30 tablet PRN Reason: Oxycodone HCl [Oxy-Ir 5 mg Tablet] 10 mg PO Q8HP PRN #30 tab PRN Reason: Temazepam [Restoril 7.5 mg Capsule] 7.5 mg PO HSP PRN #15 cap PRN Reason: Home Medications: Acetaminophen [7T Gummy Es] 1,000 mg PO TID #180 tab.chew 11/29/19 Bupropion HCl [Bupropion Xl] 150 mg PO DAILY 11/29/19 Cyclobenzaprine HCl [Flexeril 10 mg Tablet] 10 mg PO TIDP PRN #30 tab 11/29/19 Duloxetine HCl [Cymbalta] 60 mg PO DAILY 11/29/19 Hydrochlorothiazide [Hydrodiuril 25 mg Tablet] 25 mg PO QAM 11/29/19 Naloxone HCl [Narcan] 4 mg NS ONCEP PRN #1 spray 11/29/19 Naproxen [EC-Naproxen] 375 mg PO BID #30 tablet. 11/29/19 Oxycodone HCl [Oxy-Ir 5 mg Tablet] 10 mg PO Q8HP PRN #30 tab 11/29/19 Oxycodone HCl [Oxy-Ir 5 mg Tablet] 10 mg PO Q8HP PRN #30 tablet 11/29/19 Temazepam [Restoril 7.5 mg Capsule] 7.5 mg PO HSP PRN #15 cap 11/29/19 History of Present Illiness History of Present Illness: YAMINI FLORENTINO is a 53 year old female Physical Exam Vital Signs: Temp Pulse Resp BP Pulse Ox 97.7 F 81 14 107/71 97 11/29/19 10:52 11/29/19 10:52 11/29/19 10:52 11/29/19 07:41 11/29/19 10:52 Intake & Output 11/28/19 11/29/19 11/30/19 06:59 06:59 06:59 Intake Total 320 756 Output Total 0 Balance 320 756 Weight 67.5 kg Results Laboratory Results: WBC 7.5 10^3/uL (4.0-10.5) 11/28/19 15:04 RBC 4.33 10^6/uL (3.72-5.28) 11/28/19 15:04 Hgb 13.5 g/dL (12.0-15.5) 11/28/19 15:04 Hct 39.3 % (36.0-47.0) 11/28/19 15:04 MCV 91 fl (80-97) 11/28/19 15:04 MCH 31.2 pg (27.0-33.4) 11/28/19 15:04 MCHC 34.4 g/dL (32.0-36.0) 11/28/19 15:04 RDW 13.5 % (11.5-14.0) 11/28/19 15:04 Plt Count 239 10^3/uL (150-450) 11/28/19 15:04 Lymph % (Auto) 15.6 % (13-45) 11/28/19 15:04 [place] % (Auto) 6.8 % (3-13) 11/28/19 15:04 Eos % (Auto) 2.4 % (0-6) 11/28/19 15:04 Baso % (Auto) 1.0 % (0-2) 11/28/19 15:04 Absolute Neuts (auto) 5.6 10^3/uL (1.7-8.2) 11/28/19 15:04 Absolute Lymphs (auto) 1.2 10^3/uL (0.5-4.7) 11/28/19 15:04 Absolute Monos (auto) 0.5 10^3/uL (0.1-1.4) 11/28/19 15:04 Absolute Eos (auto) 0.2 10^3/uL (0.0-0.6) 11/28/19 15:04 Absolute Basos (auto) 0.1 10^3/uL (0.0-0.2) 11/28/19 15:04 Seg Neutrophils % 74.2 % (42-78) 11/28/19 15:04 Sodium 139.8 mmol/L (137-145) 11/28/19 15:04 Potassium 3.6 mmol/L (3.6-5.0) 11/28/19 15:04 Chloride 101 mmol/L (98-107) 11/28/19 15:04 Carbon Dioxide 28 mmol/L (22-30) 11/28/19 15:04 Anion Gap 11 (5-19) 11/28/19 15:04 BUN 12 mg/dL (7-20) 11/28/19 15:04 Creatinine 0.82 mg/dL (0.52-1.25) 11/28/19 15:04 Est GFR ( Amer) > 60 (>60) 11/28/19 15:04 Est GFR (MDRD) Non-Af > 60 (>60) 11/28/19 15:04 Glucose 148 mg/dL (75-110) H 11/28/19 15:04 Calcium 9.6 mg/dL (8.4-10.2) 11/28/19 15:04 Total Bilirubin 0.5 mg/dL (0.2-1.3) 11/28/19 15:04 Direct Bilirubin 0.3 mg/dL (0.0-0.4) 11/28/19 15:04 Neonat Total Bilirubin Not Reportable 11/28/19 15:04 Neonat Direct Bilirubin Not Reportable 11/28/19 15:04 Neonat Indirect Bili Not Reportable 11/28/19 15:04 AST 48 U/L (14-36) H 11/28/19 15:04 ALT 36 U/L (<35) H 11/28/19 15:04 Alkaline Phosphatase 92 U/L (38-126) 11/28/19 15:04 Total Protein 7.5 g/dL (6.3-8.2) 11/28/19 15:04 Albumin 4.6 g/dL (3.5-5.0) 11/28/19 15:04 Urine Color [facility] 11/28/19 17:40 Urine Appearance SLIGHTLY-CLOUDY 11/28/19 17:40 Urine pH 6.0 (5.0-9.0) 11/28/19 17:40 Ur Specific [place] 1.046 11/28/19 17:40 Urine Protein NEGATIVE mg/dL (NEGATIVE) 11/28/19 17:40 Urine Glucose (UA) NEGATIVE mg/dL (NEGATIVE) 11/28/19 17:40 Urine Ketones TRACE mg/dL (NEGATIVE) H 11/28/19 17:40 Urine Blood NEGATIVE (NEGATIVE) 11/28/19 17:40 Urine Nitrite NEGATIVE (NEGATIVE) 11/28/19 17:40 Urine Bilirubin NEGATIVE (NEGATIVE) 11/28/19 17:40 Urine Urobilinogen 2.0 mg/dL (<2.0) H 11/28/19 17:40 Ur Leukocyte Esterase NEGATIVE (NEGATIVE) 11/28/19 17:40 Urine WBC (Auto) 2 /HPF 11/28/19 17:40 Urine RBC (Auto) 2 /HPF 11/28/19 17:40 Squamous Epi Cells Auto 15 /HPF 11/28/19 17:40 Urine Mucus (Auto) FEW /LPF 11/28/19 17:40 Urine Ascorbic Acid NEGATIVE (NEGATIVE) 11/28/19 17:40 Impressions: Abdomen/Pelvis CT 11/28/19 16:12 IMPRESSION: No acute findings. Stable appearance of the ascending aorta measuring 4.1 cm in greatest dimension. No dissection. Similar posterior left 8th through 11th rib fractures. Small amount of left basilar subsegmental atelectasis -trace effusion, similar to the prior study. Chest/Abdomen CTA 11/28/19 16:18 IMPRESSION: No acute findings. Stable appearance of the ascending aorta measuring 4.1 cm in greatest dimension. No dissection. Similar posterior left 8th through 11th rib fractures. Small amount of left basilar subsegmental atelectasis -trace effusion, similar to the prior study. Stroke Is this a Stroke Patient?: No Acute Heart Failure Is this a Heart Failure Patient?: No
== END 2019-11-29 13:27 | disposition home or self-care (01) ==
LOC: ER 14:15 → EH 20:52 → 4N 22:33
PROVIDERS: ADMIT Internal Medicine; ATTEND Hospitalist
DX: S22.42XA Multiple fractures of ribs, left side, initial encounter for closed fracture (principal); M54.9 Dorsalgia, unspecified; I10 Essential (primary) hypertension; I71.2 Thoracic aortic aneurysm, without rupture; J98.11 Atelectasis; R11.0 Nausea; M54.5 Low back pain; F41.9 Anxiety disorder, unspecified; R06.82 Tachypnea, not elsewhere classified; R00.0 Tachycardia, unspecified; W10.9XXA Fall (on) (from) unspecified stairs and steps, initial encounter; Y93.K1 Activity, walking an animal; Z79.899 Other long term (current) drug therapy
CPT/HCPCS: 99285; 96374; 96375; 36415; 85025; 80053; 81001; 71275; 74177; 94799; G0378 ×3; A9270 ×5; J1885 ×2; J2270 ×2; J1170 ×2; J2405; J7030; J3490

== ENCOUNTER 2020-03-25 15:58 | Emergency (ER) | payer MEDICARE ==
[2020-03-25] MEDS ORDERED: NORMAL SALINE 1000 ML 1,000 ML IV ONE (16:25)
[2020-03-25] MEDS ORDERED: MECLIZINE HCL 25 MG TABLET PO ONE (16:25)
[2020-03-25] MEDS ORDERED: ACETAMINOPHEN 325 MG TABLET PO ONE (16:25)
[2020-03-25] MEDS ORDERED: ONDANSETRON HCL INJ/PF 4 MG/2 ML SDV IV ONE (16:25)
--- NOTE | 2020-03-25 16:28 | ER Document Report ---
ED Medical Screen (RME) - General Chief Complaint: Dizziness Stated Complaint: HEADACHE, DIZZINESS Time Seen by Provider: 03/25/20 16:16 Primary Care Provider: KIRIT GALLOWAY DO [Primary Care Provider] - Follow up as needed Notes: Patient presents complaining of dizziness with nausea fatigue and sweats that started 2 days ago. Patient states 2 days ago she had sharp chest pain that lasted for several hours. Patient denies any sharp chest pain although does report some discomfort in the chest area that she describes as a heaviness. Patient denies any cough or cold symptoms. Patient denies any fever. Patient does complain of neck pain. Patient states she has chronic neck pain due to a herniated disc that typically will cause her to have neck and headache pain. She does have headache pain as well behind her eyes. Patient also reports a history of a thoracic aneurysm. I have greeted and performed a rapid initial assessment of this patient. A comprehensive ED assessment and evaluation of the patient, analysis of test results and completion of the medical decision making process will be conducted by additional ED providers. TRAVEL OUTSIDE OF THE [place] IN LAST 30 DAYS: No - Related Data Allergies/Adverse Reactions: No Known Allergies Allergy (Verified 11/28/19 14:44) Past Medical History - Past Medical History Cardiac Medical History: Reports: Hx Hypertension Musculoskeltal Medical History: Reports Hx Arthritis - Chronic neck and back pain Psychiatric Medical History: Reports: Hx Depression Past Surgical History: Reports: Hx Orthopedic Surgery Physical Exam - Vital signs Vitals: Temp Pulse Resp BP Pulse Ox 98.1 F 87 20 139/105 H 100 03/25/20 16:13 03/25/20 16:13 03/25/20 16:13 03/25/20 16:13 03/25/20 16:13 - Respiratory Respiratory status: No respiratory distress Chest status: Nontender Breath sounds: Normal Chest palpation: Normal - Cardiovascular Rhythm: Regular Heart sounds: S1 appreciated, S2 appreciated Murmur: No Course - Vital Signs Vital signs: Temp Pulse Resp BP Pulse Ox 98.1 F 87 20 139/105 H 100 03/25/20 16:13 03/25/20 16:13 03/25/20 16:13 03/25/20 16:13 03/25/20 16:13 Doctor's Discharge - Discharge Referrals: KIRIT GALLOWAY DO [Primary Care Provider] - Follow up as needed
[2020-03-25 16:59] LABS: ABSOLUTE BASOPHILS # (AUTO) 0.1 10^3/uL (0.0-0.2); ABSOLUTE EOSINOPHILS # (AUTO) 0.4 10^3/uL (0.0-0.6); ABSOLUTE LYMPHOCYTES (AUTO) 2.3 10^3/uL (0.5-4.7); ABSOLUTE MONOCYTES (AUTO) 0.5 10^3/uL (0.1-1.4); ABSOLUTE NEUT (AUTO) 5.2 10^3/uL (1.7-8.2); BASOPHILS % (AUTO) 1.2 % (0-2); EOSINOPHILS % (AUTO) 4.2 % (0-6); HEMATOCRIT 41.5 % (36.0-47.0); LYMPHOCYTES % (AUTO) 27.6 % (13-45); MEAN CORPUSCULAR HEMOGLOBIN 29.4 pg (27.0-33.4); MEAN CORPUSCULAR HGB CONC 33.7 g/dL (32.0-36.0); MEAN CORPUSCULAR VOLUME 87 fl (80-97); MONOCYTES % (AUTO) 6.1 % (3-13); PLATELET COUNT 270 10^3/uL (150-450); RED BLOOD COUNT 4.75 10^6/uL (3.72-5.28); RED CELL DISTRIBUTION WIDTH 13.7 % (11.5-14.0); SEGMENTED NEUTROPHILS % (AUTO) 60.9 % (42-78); TOTAL CELLS COUNTED % (AUTO) 100 %; WHITE BLOOD COUNT 8.5 10^3/uL (4.0-10.5)
[2020-03-25 17:04] LABS: APPEARANCE,URINE CLEAR; BILIRUBIN,URINE NEGATIVE (NEGATIVE); COLOR,URINE YELLOW; GLUCOSE, URINE NEGATIVE (NEGATIVE); KETONES,URINE NEGATIVE (NEGATIVE); LEUKOCYTE ESTERASE,URINE NEGATIVE (NEGATIVE); NITRITE,URINE NEGATIVE (NEGATIVE); PROTEIN,URINE NEGATIVE (NEGATIVE); URINE SPECIFIC GRAVITY 1.019; UROBILINOGEN,URINE NEGATIVE mg/dL (<2.0)
[2020-03-25 17:11] LABS: ALBUMIN 4.6 g/dL (3.5-5.0); ALKALINE PHOSPHATASE 113 U/L (38-126); ANION GAP 7 (5-19); ASPARTATE AMINO TRANSFERASE 26 U/L (14-36); BILIRUBIN,DIRECT 0.2 mg/dL (0.0-0.4); BILIRUBIN,TOTAL 0.3 mg/dL (0.2-1.3); BLOOD UREA NITROGEN 16 mg/dL (7-20); CALCIUM 10.1 mg/dL (8.4-10.2); CARBON DIOXIDE 31 mmol/L (22-30); CHLORIDE 102 mmol/L (98-107); GLUCOSE 103 mg/dL (75-110); POTASSIUM 4.2 mmol/L (3.6-5.0); TOTAL PROTEIN 7.7 g/dL (6.3-8.2)
--- NOTE | 2020-03-25 17:54 | RADIOLOGY REPORT (SQ) ---
EXAM DESCRIPTION: CHEST SINGLE VIEW IMAGES COMPLETED DATE/TIME: 03/25/2020 5:15 pm REASON FOR STUDY: cp COMPARISON: None. EXAM PARAMETERS: NUMBER OF VIEWS: One view. TECHNIQUE: Single frontal radiographic view of the chest acquired. RADIATION DOSE: NA LIMITATIONS: None. FINDINGS: LUNGS AND PLEURA: No opacities, masses or pneumothorax. No pleural effusion. MEDIASTINUM AND HILAR STRUCTURES: No masses. Contour normal. HEART AND VASCULAR STRUCTURES: Heart normal in size. Normal vasculature. BONES: No acute findings. HARDWARE: None in the chest. OTHER: No other significant finding. IMPRESSION: NO ACUTE RADIOGRAPHIC FINDING IN THE CHEST. TECHNICAL DOCUMENTATION: JOB ID: [id number] 2010 [employer]- All Rights Reserved Reading location - IP/workstation name: [email or web address]
--- NOTE | 2020-03-25 18:50 | ER Document Report ---
ED General - General Chief Complaint: Dizziness Stated Complaint: HEADACHE, DIZZINESS Time Seen by Provider: 03/25/20 16:16 Primary Care Provider: JJ PAL MD [ACTIVE STAFF] - Follow up in 3-5 days KIRIT GALLOWAY DO [Primary Care Provider] - Follow up in 3-5 days TRAVEL OUTSIDE OF THE [place] IN LAST 30 DAYS: No - HPI Notes: Patient is a 54-year-old female with a past medical history of hypertension and thoracic aortic aneurysm who presents with multiple complaints. She states that 2 nights ago, she woke up with headache, lightheadedness, sharp chest pain, palpitations. She states that her blood pressure was 170 systolic and her heart rate was 140. She was able to fall back asleep within 2 hours. She states that since then, she has had headache around her eyes as well as in the back of her head. She has chronic headaches from neck pain. She has chronic neck pain and has had surgery several years ago. She states that her neck has been hurting and it radiates down her right trapezius and her right arm. This is not new. She states that Tylenol and ibuprofen do not help. She has also tried muscle relaxers without relief. She also has lidocaine patches. She is going to have another neck surgery for a fusion coming up soon. Patient states that her chest pain has resolved. It only hurts when you press in the middle of her chest. It is not pleuritic. Patient is a non-smoker. She states that she does not want any treatment in the ER. She was sent here by her PCPs office who thought that she had an abnormal EKG. Patient states she just wants to go home if her lab work is normal. She states she does not want any other work-up. - Related Data Allergies/Adverse Reactions: No Known Allergies Allergy (Verified 11/28/19 14:44) Past Medical History - General Information source: Patient - Social History Smoking Status: Never Smoker Family History: CAD - Past Medical History Cardiac Medical History: Reports: Hx Hypertension Musculoskeletal Medical History: Reports Hx Arthritis - Chronic neck and back pain Psychiatric Medical History: Reports: Hx Depression Past Surgical History: Reports: Hx Orthopedic Surgery Review of Systems - Review of Systems Notes: CONSTITUTIONAL: No fever, fatigue or weight loss. SKIN: No rash. HENT: No congestion, ear pain, or sore throat. CARDIOVASCULAR: Positive for chest pain that has resolved. RESPIRATORY: No cough, shortness of breath, congestion, or wheezing. GASTROINTESTINAL: No abdominal pain, nausea, vomiting, bloody stools or diarrhea. GENITOURINARY: No dysuria. MUSCULOSKELETAL: No joint pain or swelling. LYMPHATIC: No swollen glands. NEUROLOGIC: No seizures. Positive for headaches, lightheadedness, neck pain. HEMATOLOGIC: No unusual bruising or bleeding. PSYCHIATRIC: No depression or anxiety. Physical Exam - Vital signs Vitals: Temp Pulse Resp BP Pulse Ox 98.1 F 87 20 139/105 H 100 03/25/20 16:13 03/25/20 16:13 03/25/20 16:13 03/25/20 16:13 03/25/20 16:13 - General General appearance: Appears well In distress: None Notes: VITAL SIGNS: Within normal limits. GENERAL: No acute distress, non-toxic appearance. HEAD: Normal with no signs of head trauma. EYES: Conjunctiva normal, no discharge. EARS: Hearing grossly intact. NECK: Normal range of motion. Discomfort to palpation of right cervical paraspinal musculature extending to the right trapezius. CHEST: Clear breath sounds bilaterally. No wheezes, rales, or rhonchi. CARDIAC: Regular rate and rhythm. S1 and S2, without murmurs, gallops, or rubs. VASCULAR: No Edema. ABDOMEN: Normal and soft. LYMPATHTIC: No lymphadenopathy noted. MUSCULOSKELETAL: Good range of motion of all major joints. Extremities without clubbing, cyanosis or edema. NEUROLOGICAL: Alert and oriented x 3. No focal sensory or strength deficits. Speech normal. Follows commands appropriately. PSYCHIATRIC: Normal Affect, judgement and mood. Mildly anxious. SKIN: Normal appearance with no rashes or lesions. Course - Re-evaluation Re-evalutation: 03/25/20 19:01 Patient's lab work is unremarkable. She had a negative troponin and she has had symptoms since Saturday so I do not believe she absolutely requires a second troponin. Her EKG is nondiagnostic. I did discuss with the patient that I am unable to fully evaluate her chest pain without a CTA as she does have an aneurysm on her previous imaging in November. Patient declined. She states she just wants to make sure her lab work and her EKG is okay and she wants to go home. She does not want any treatment for the headache or lightheadedness. She states she never wanted to come to the ER but she was sent by her PCP. I did discuss with her that her neck pain is likely muscular as it is much worse with palpation of the paracervical musculature and the trapezius muscle. This can definitely be causing headaches. She states that she has chronic headaches and this is not new. Her vitals here are within normal limits. She is not tachycardic. I do not think she has a PE. I did discuss the patient needs to follow-up with cardiology. She preferred to see your PCP to have a cardiac work-up. I believe this is reasonable. Again, I tried to discuss with patient indication for further work-up but she refused. Patient is no longer having any chest pain. States she will follow-up outpatient. Heart score is 2. - Vital Signs Vital signs: Temp Pulse Resp BP Pulse Ox 98.1 F 87 20 139/105 H 100 03/25/20 16:13 03/25/20 16:13 03/25/20 16:13 03/25/20 16:13 03/25/20 16:13 - Laboratory Results Result Diagrams: 03/25/20 16:25 03/25/20 16:25 Laboratory Results Interpreted: 03/25/20 16:25 Carbon Dioxide 31 H Critical Laboratory Results Reviewed: No Critical Results - Radiology Results Critical Radiology Results Reviewed: No Critical Results - EKG Interpretation by Me EKG shows normal: Sinus rhythm Rate: Normal Rhythm: NSR When compared to previous EKG there are: Previous EKG unavailable Additional EKG results interpreted by me: 03/25/20 19:04 This rhythm at a rate of 81. QTc 446. No acute ST changes. No previous EKG available for comparison. Discharge - Discharge Clinical Impression: Lightheadedness Headache Qualifiers: Headache type: unspecified Headache chronicity pattern: acute headache Intrac tability: not intractable Qualified Code(s): R51.9 - Headache, unspecified Chest pain Qualifiers: Chest pain type: unspecified Qualified Code(s): R07.9 - Chest pain, unspecified Condition: Stable Disposition: HOME, SELF-CARE Instructions: Chest Pain of Unclear Cause ([facility]), Dizziness ([facility]), Headache ([facility]) Additional Instructions: Your lab work and x-ray are reassuring today. Please follow-up with your family doctor. He should order you an outpatient stress test and echocardiogram. I will also provide the number for cardiology if you would like to follow-up with them and have this done. Please return to the ER immediately for any worsening symptoms, dizziness, chest pain, shortness of breath. Referrals: KIRIT GALLOWAY DO [Primary Care Provider] - Follow up in 3-5 days JJ PAL MD [ACTIVE STAFF] - Follow up in 3-5 days
--- NOTE | 2020-03-25 18:54 | EKG REPORT ---
SEVERITY:- NORMAL ECG - SINUS RHYTHM : Confirmed by: Sam Ceballos MD 25-Mar-2020 18:53:28
[2020-03-25 19:00] VITALS: BP 161/108
== END 2020-03-25 19:00 | disposition home or self-care (01) ==
LOC: ER 15:58
DX: R51.9 Headache, unspecified (principal); M54.2 Cervicalgia; G89.29 Other chronic pain; R42 Dizziness and giddiness; R07.9 Chest pain, unspecified; R00.2 Palpitations; I10 Essential (primary) hypertension; Z98.890 Other specified postprocedural states
CPT/HCPCS: 93005; 99285; 36415; 85025; 80053; 81001; 84484; 71045; 93010; A9270